=== PATIENT | male | born 2000 | race Two or more races ===

== ENCOUNTER 2024-10-09 11:26 | Emergency (ER) | payer OTHER, SELFPAY ==
[2024-10-09 12:10] VITALS: BP 124/82; PULSE 79; RESP 19; TEMP 37.5; O2SAT 98; BMI 20.1
--- NOTE | 2024-10-09 12:30 | EKG_ITS ---
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
--- NOTE | 2024-10-09 12:30 | XR_ITS ---
Examination: PA lateral chest 2 views Technique: AP upright lateral chest 2 views Date and time: October 09, 2024, 12:37 PM, comparison April 08, 2007. Indication: Dizziness this week. Findings: Significant hyperexpansion. Normal heart size. No pneumonia or pulmonary edema. Impression: COPD with significant hyperexpansion.
--- NOTE | 2024-10-09 12:31 | PD.EDRME ---
Rapid Medical Screening Exam RME Arrival date/time: 10/09/24 11:26 Chief Complaint: Headache Time Seen by Provider: 10/09/24 12:15 Vital signs: Vital Signs Temperature 99.5 F 10/09/24 12:10 Pulse Rate 79 10/09/24 12:10 Respiratory Rate 19 10/09/24 12:10 Blood Pressure 124/82 10/09/24 12:10 Pulse Oximetry (%) 98 10/09/24 12:10 Oxygen Delivery Method Room Air 10/09/24 12:10 Vital signs reviewed by provider: Yes RME Narrative: Patient is a 24-year-old male with no significant past medical history is in the Emergency Department feeling weak and lightheaded. Patient states that over the last couple days he has felt this way. Denies fevers chills nausea vomiting cough runny nose abdominal pain dysuria hematuria melena bloody stools. No drugs alcohol or smoking no recent travel no sick contacts. 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 Recently started antibiotics for a sinus infection. However his symptoms preceded that
[2024-10-09 13:18] LABS: Collection Type, Urine Clean Catch; Squamous Epithelial Cell,Urine 0 /hpf (0-5); WBC,Urine 0 /hpf (0-5)
[2024-10-09 13:43] LABS: Bilirubin,Urine Negative (Negative); Blood,Urine Negative (Negative); Clarity,Urine Clear (Clear/Hazy); Color,Urine Colorless (Lt Yel-Yel); Culture Indicated,Urine Not Indicated; Glucose, Urine Negative (Negative); Ketones,Urine Negative (Negative); Leukocyte Esterase,Urine Negative (Negative); Nitrite,Urine Negative (Negative); PH,Urine 7.0 (5.0-7.0); Protein,Urine Negative (Neg - Trace); RBC,Urine 2 /hpf (0-3); Specific Gravity,Urine 1.010 (1.001-1.035); Urobilinogen,Urine Negative mg/dL (0.0-1.0)
[2024-10-09 13:50] LABS: Basophils # (Auto) 0.1 Thou/mm3 (0.0-0.2); Basophils % (Auto) 1 % (0-2.5); Eosinophils # (Auto) 0.1 Thou/mm3 (0.0-0.5); Eosinophils % (Auto) 2 % (0-10); Hematocrit 45.7 % (41.0-53.0); Hemoglobin 16.0 g/dL (13.5-16.0); Immature Granulocytes Auto 0.01 Thou/mm3 (0.00-0.00); Lymphocytes # (Auto) 1.5 Thou/mm3 (1.0-4.8); Lymphocytes % (Auto) 26 % (10-50); Mean Corpuscular HGB Conc 35.0 g/dl (31.0-37.0); Mean Corpuscular Hemoglobin 30.2 pg (25.0-35.0); Mean Corpuscular Volume 86 fL (80-100); Monocytes # (Auto) 0.5 Thou/mm3 (0.0-0.8); Monocytes % (Auto) 8 % (0-12); Neutrophils # (Auto) 3.7 Thou/mm3 (1.8-7.7); Neutrophils % (Auto) 63 % (37-80); Nucleated Red Blood Cell # 0.00 Thou/mm3 (0.00-0.00); Nucleated Red Blood Cell % 0 /100 WBC (0); Platelet Count 178 Thou/mm3 (140-440); RDW Standard Deviation 37.4 fL (35.1-43.9); Red Blood Count 5.29 Miln/mm3 (4.50-5.90); White Blood Count 5.8 Thou/mm3 (3.8-10.6)
[2024-10-09 14:03] LABS: Amphetamine/Methamp Scrn,U Negative (Negative); Barbiturate Screen,Urine Negative (Negative); Benzodiazepines Screen,Urine Negative (Negative); Benzoylecgonine Screen, Ur Negative (Negative); Fentanyl Screen,Urine Negative (Negative); Opiate Screen,Urine Negative (Negative); THC Screen,Urine Negative (Negative)
[2024-10-09 15:10] LABS: Alanine Aminotransferase 11 U/L (10-49); Albumin, Serum 5.2 gm/dL (3.5-5.0); Albumin/Globulin Ratio 1.9 (1.2-2.2); Alkaline Phosphatase 73 U/L (46-116); Anion Gap 12 (7-16); Aspartate Amino Transferase 19 U/L (0-34); BUN/Creatinine Ratio 7 Ratio (12-20); Bilirubin,Total 0.9 mg/dL (0.3-1.2); Blood Urea Nitrogen 8 mg/dL (9-23); Calcium 10.2 mg/dL (8.3-10.6); Calcium (Corrected) 10.2 mg/dL (8.5-10.1); Carbon Dioxide 26.3 mMol/L (20.0-31.0); Chloride 105 mMol/L (98-107); Creatinine (Component) 1.1 mg/dL (0.6-1.3); Estimated Creatinine Clearance 93.3 mL/min (>60); Free T4 (Free Thyroxine) 1.38 ng/dL (0.89-1.76); Globulin 2.7 gm/dL (2.3-3.5); Glucose 102 mg/dL (74-106); Osmolality,Calculated 283 (275-295); Potassium 4.5 mMol/L (3.4-5.1); Sodium 143 mMol/L (136-145); Thyroid Stimulating Hormone 1.24 uIU/mL (0.55-4.78); Total Protein 7.9 gm/dL (5.7-8.2); Troponin I < 0.002 ng/mL (0.0-0.045); eGFR > 60 See Note
--- NOTE | 2024-10-09 15:31 | EDNOTE_ITS ---
ED Headache RME/HPI General Chief Complaint: Headache Stated Complaint: HEADACHE, SHAKINESS, FEELS FAINT X WEEK Time Seen by Provider: 10/09/24 12:15 Source: patient Arrival date/time: 10/09/24 11:26 Mode of arrival: ambulatory Limitations: no limitations RME / HPI RME / HPI Narrative: Patient is a 24-year-old male with no significant past medical history is in the Emergency Department feeling weak and lightheaded. Patient states that over the last couple days he has felt this way. Denies fevers chills nausea vomiting cough runny nose abdominal pain dysuria hematuria melena bloody stools. No drugs alcohol or smoking no recent travel no sick contacts. 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 Recently started antibiotics for a sinus infection. However his symptoms preceded that Related Data Home Medications ?Medication ?Instructions ?Recorded ?Confirmed albuterol sulfate 90 mcg/actuation 1 - 2 puff IH EVERY 3 HOUR ##1 04/13/07 aerosol inhaler (Ventolin HFA) montelukast 5 mg chewable tablet 5 mg ORAL DAILY ##0 0 04/13/07 (Singulair) prednisolone 15 mg/5 mL oral 15 mg ORAL DAILY ##0 03/21 06/24 solution Allergies Allergy/AdvReac Type Severity Reaction Status Date / Time No Known Allergies Allergy Verified 10/09/24 11:27 ED Exam General Limitations: Present no limitations General appearance: Present in no apparent distress Head Head exam: Present atraumatic and normocephalic Eye Eye exam: Present normal appearance, PERRL and EOMI ENT ENT exam: Present normal exam and normal oropharynx Neck Neck exam: Present normal inspection, full ROM and trachea midline; Absent tenderness or meningismus Chest Chest inspection: Present symmetric chest wall rise Respiratory Respiratory exam: Present normal lung sounds bilaterally; Absent respiratory distress Cardiovascular Cardiovascular exam: Present regular rate and normal rhythm Abdominal Exam Abdominal exam: Present soft; Absent distention or tenderness Extremities Exam Extremities exam: Present normal inspection and full ROM Neurological Exam Neurological exam: Present alert, oriented X3, CN II-XII intact and normal gait; Absent motor sensory deficit Psychiatric Psychiatric exam: Present normal affect Skin Skin exam: Present warm, dry and intact Course Quality Measures none Orders Category Date Time Status EKG (ED ONLY) *Do not use* NOW Care 10/09/24 12:30 Completed CXR2 [XR chest 2V] Stat Exams 10/09/24 12:30 Completed EKG (ED Only) Stat Exams 10/09/24 12:30 Draft CBC Stat Lab 10/09/24 13:42 Completed CMP [Comprehensive Metabolic Panel] Stat Lab 10/09/24 13:42 Completed Drug Screen,Urine Stat Lab 10/09/24 13:01 Completed Free T4 (Free Thyroxine) Stat Lab 10/09/24 13:42 Completed TSH [Thyroid Stimulating Hormone] Stat Lab 10/09/24 13:42 Completed Troponin I Stat Lab 10/09/24 13:42 Completed UA, C/S IF [Urinalysis, C/S if Indicated] Stat Lab 10/09/24 13:01 Completed Vital Signs Vital signs: Vital Signs Temperature 99.5 F 10/09/24 12:10 Pulse Rate 79 10/09/24 12:10 Respiratory Rate 19 10/09/24 12:10 Blood Pressure 124/82 10/09/24 12:10 Pulse Oximetry (%) 98 10/09/24 12:10 Oxygen Delivery Method Room Air 10/09/24 12:10 Headache MDM Narrative MDM Narrative:: Patient is a 24-year-old male is in the emerged from concerns for weakness, and presyncopal symptoms. Vital signs and exam as listed. Concern for urinary tract infection, ACS arrhythmia electrolyte abnormality viral syndrome among others. Ordered labs EKG and offer medication for symptom relief. Labs without acute hematologic abnormality, no leukocytosis, hemoglobin within normal limits, no acute electrolyte abnormality, no evidence of renal dysfunction, no transaminitis troponin not elevated, thyroid studies unremarkable, urinalysis without evidence of infection, drug screen is negative, EKG performed today at 12:50 PM notable for sinus rhythm, short [place], normal QT, nonspecific T wave changes, not a cardiac alert. Chest x-ray without evidence of hyperexpansion. On reevaluation patient hemodynamically stable not distressed will discharge to home with close return precautions follow-up with his primary care doctor. Patient data External records reviewed:: None Clinical information provided by:: patient Social determinants that could affect healthcare access:: none Patient has the following chronic illnesses:: None How is presenting disease/condition affected by chronic disease/condition?: no chronic disease Evaluation data The following diagnostics were reviewed and interpreted by me:: lab results, radiology exam(s) and EKG tracing(s) Lab and/or radiology exams considered but not ordered:: None Interpretation Summary: See MDM Medications / Prescriptions Medications or Prescriptions considered but not ordered:: None Medication administrations:: None Consultations Consultation(s) initiated? (list below): No Diagnosis Differential diagnosis headache: headache and other (Syncope, metabolic disturbance) Most likely diagnosis given after review of the tests above:: Presyncope Admission Indicated Admission indicated?: not indicated Admission Request Was there a request for admission?: No Disposition Plan Disposition Plan: Discharge Discharge Attestation Discharge Attestation: The patient and all family members were given an opportunity to ask questions and understood the discharge instructions. Discharge instructions specifically effects, indications for sooner follow up or return to the emergency department, and the expected course of current diagnosis. Patient condition: Stable Discharge Plan Plan Patient Disposition: HOME (Self Care) Prescriptions/Referrals Prescriptions/Med Rec: No Action albuterol sulfate [Ventolin HFA] 200 PUFF/INH HFA aerosol inhaler 1 - 2 puff IH EVERY 3 HOUR Qty: 1 Patient Comments: TAKE 2 PUFFS BY MOUTH NEEDED EVERY 3 HOURS FOR ASTHMA prednisolone 15 MG/5 ML syrup 15 mg ORAL DAILY Qty: 0 Patient Comments: TAKE 2 TEASPOONS BY MOUTH DAILY FOR 3 DAYS THEN ONE TEASPOON BY MOUTH DAILY FOR 4 DAYS. montelukast [Singulair] 5 MG tablet,chewable 5 mg ORAL DAILY Qty: 0 Patient Comments: CHEW ONE TABLET BY MOUTH DAILY Referrals: No Primary/Family,Physician [Primary Care Provider] - In 1 week Problem List Clinical Impression: Pre-syncope, Shortened [place] interval Patient/Caregiver Discharge Instructions Education Materials: Causes of Syncope Additional Instructions: Please follow-up with your primary care doctor within the next 1 to 2 days. You may benefit from a stress test and further evaluation with a senior asp net developer. If your symptoms recur please return to the emergency department immediately. Print Language: Palestinian Stand Alone Forms: [employer] Info., Patient Portal Info Letter
== END 2024-10-09 17:24 | disposition home or self-care (01) ==
PROVIDERS: Emergency Provider Emergency Medicine
DX: R55 Syncope and collapse (principal); R53.1 Weakness
CPT/HCPCS: 36415; 71046; 80053; 80307; 81001; 84439; 84443; 84484; 85025; 93005; 99283

== ENCOUNTER 2024-11-26 12:17 | Emergency (ER) | payer OTHER, BC, SELFPAY ==
--- NOTE | 2024-11-26 12:42 | EKG_ITS ---
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
--- NOTE | 2024-11-26 12:42 | XR_ITS ---
Examination: CT brain head without contrast. 2-D sagittal coronal reconstructions Date and time of exam: November 26, 2024, 1257 hours INDICATIONS: Intermittent headache today CTDI: vol (mGy): 49.9 DLP: (mGycm): 1053 Technique: Multiple CT axial sections of the brain have been obtained, 5 mm slice thickness. Contrast has not been administered. 2-D sagittal, coronal reconstructions have been obtained Low dose protocols were performed. One or more of the following dose reduction techniques were used; automated exposure control, adjustment of the mA and/or KV according to patient size, use of iterative reconstruction technique. Findings: No significant ventricular enlargement. Intra-axial or extra-axial hemorrhage density is not seen. No mass effect or midline shift Basal cisterns are not remarkable. Fourth ventricle is midline. Cranial vault intact. Chronic ethmoid and sphenoid sinusitis Impression: Negative for acute hemorrhage, mass effect or midline shift
--- NOTE | 2024-11-26 12:43 | EDNOTE_ITS ---
ED Headache RME/HPI General Chief Complaint: Chest Pain Stated Complaint: CHEST PAIN, HEAVINESS IN HEAD, DIZZY Time Seen by Provider: 11/26/24 12:19 Arrival date/time: 11/26/24 12:17 RME / HPI RME / HPI Narrative: 24-year-old male patient with no significant medical history except for asthma, came in for evaluation regarding headache. Patient has been having headache for the last few days associated with dizziness. Severity of symptoms moderate. Patient also complained of chest discomfort severity mild. Has been ongoing since early this morning. Patient denies any shortness of breath denies any cough denies any diaphoresis denies any trauma to the chest denies any fall. Denies any other complaints patient is ambulatory Speech no focal neurologic deficit. No medication was taken prior to ER visit. Related Data Home Medications ?Medication ?Instructions ?Recorded ?Confirmed albuterol sulfate 90 mcg/actuation 1 - 2 puff IH EVERY 3 HOUR ##1 04/13/07 aerosol inhaler (Ventolin HFA) montelukast 5 mg chewable tablet 5 mg ORAL DAILY ##0 0 04/13/07 (Singulair) prednisolone 15 mg/5 mL oral 15 mg ORAL DAILY ##0 03/21 06/24 solution Previous Rx's ?Medication ?Instructions ?Recorded amoxicillin 875 mg-potassium 1 tab PO BID #14 tabs 12/11 clavulanate 125 mg tablet fexofenadine 60 mg-pseudoephedrine 1 tab PO Q12H PRN a llergy symptoms 11/26/24 ER 120 mg tablet,ext.release,12 hr #14 tabs (Lata-D 12 Hour) ibuprofen 800 mg tablet 800 mg PO Q8H PRN pain #30 t abs 11/26/24 Allergies Allergy/AdvReac Type Severity Reaction Status Date / Time No Known Allergies Allergy Verified 11/26/24 12:20 Review of Systems Review of Systems Narrative Review of Systems: Review of system reviewed and within normal limits except mentioned in HPI ED Exam Narrative Physical exam: VITAL SIGNS: Reviewed. GENERAL APPEARANCE: Alert and interactive, follows commands, no acute distress, HEAD AND FACE: Non-traumatic. ENT: PERRL, pink conjunctivitis, eyelid no trauma, Mucous membrane moist. NECK: Supple, nontender, no nuchal rigidity. CHEST: No tenderness, no crepitus, no paradoxical movement, no retractions. LUNGS: Clear, well ventilated, symmetric, no rales, no wheezing, no ronchi, no stridor, good breath sounds bilaterally. HEART: Regular rate, regular rhythm, no murmur, no gallops. ABDOMEN: Soft, positive bowel sounds, nondistended, no guarding, nontender, no rebound, no masses, RECTAL: Deferred. GENITAL: Deferred. NEUROLOGICAL: Gross motor function intact sensory function intact, Appropriate for age. MUSCULOSKELETAL: low back nontender, full range of motion. EXTREMITIES: Nontender, full range of motion. SKIN: Color pink, dry, no rash, no lacerations, no abrasions, no contusions. LYMPHATICS: Deferred. Course Quality Measures none Orders Category Date Time Status EKG (ED ONLY) *Do not use* NOW Care 11/26/24 12:[address] head/brain wo con Stat Exams 11/26/24 12:42 Completed EKG (ED Only) Stat Exams 11/26/24 12:42 Draft Acetaminophen Tab [Tylenol ES Tab] Med 11/26/24 12:42 Discontinued 1,000 mg PO X1 ONE Meclizine HCl [Antivert] Med 11/26/24 12:42 Discontinued 50 mg PO X1 ONE Vital Signs Vital signs: Vital Signs Temperature 97.7 F 11/26/24 12:44 Pulse Rate 86 11/26/24 12:44 Respiratory Rate 18 11/26/24 12:44 Blood Pressure 145/99 H 11/26/24 12:44 Pulse Oximetry (%) 99 11/26/24 12:44 Oxygen Delivery Method Room Air 11/26/24 12:44 Headache MDM Narrative MDM Narrative:: 24-year-old male patient with no significant medical history except for asthma, came in for evaluation regarding headache. Patient has been having headache for the last few days associated with dizziness. Severity of symptoms moderate. Patient also complained of chest discomfort severity mild. Has been ongoing since early this morning. Patient denies any shortness of breath denies any cough denies any diaphoresis denies any trauma to the chest denies any fall. Denies any other complaints patient is ambulatory Speech no focal neurologic deficit. No medication was taken prior to ER visit. CT scan of the head showed No significant ventricular enlargement. Intra-axial or extra-axial hemorrhage density is not seen. No mass effect or midline shift Basal cisterns are not remarkable. Fourth ventricle is midline. Cranial vault intact. Chronic ethmoid and sphenoid sinusitis Impression: Negative for acute hemorrhage, mass effect or midline shift EKG showed sinus rhythm, ventricular rate of 80 bpm, no ST segment elevation or depression noted. Prior to discharge patient is not having any symptoms of chest discomfort. Patient is ambulatory. Patient was given a copy of his CT scan. Will prescribe him on Augmentin Lata-D and Motrin. Stable for discharge home Patient data External records reviewed:: None Clinical information provided by:: patient Social determinants that could affect healthcare access:: none Patient has the following chronic illnesses:: None How is presenting disease/condition affected by chronic disease/condition?: no chronic disease Evaluation data The following diagnostics were reviewed and interpreted by me:: radiology exam(s) and EKG tracing(s) Lab and/or radiology exams considered but not ordered:: None Interpretation Summary: See results MDM Medications / Prescriptions Medications or Prescriptions considered but not ordered:: None Medication administrations:: Medication Administration History Discontinued Medications Acetaminophen (Acetaminophen 500 Mg Tablet) 1,000 mg PO X1 ONE Stop: 11/26/24 12:43 Last Admin: 11/26/24 12:59 Dose: 1,000 mg Documented By: JOANIE Meclizine HCl (Meclizine Hcl 25 Mg Tablet) 50 mg PO X1 ONE Stop: 11/26/24 12:43 Last Admin: 11/26/24 13:00 Dose: 50 mg Documented By: JOANIE Tylenol, meclizine Consultations Consultation(s) initiated? (list below): No Diagnosis Differential diagnosis headache: migraine, headache and sinusitis Most likely diagnosis given after review of the tests above:: Sinusitis Admission Indicated Admission indicated?: not indicated Admission Request Was there a request for admission?: No Disposition Plan Disposition Plan: Discharge Discharge Attestation Discharge Attestation: The patient and all family members were given an opportunity to ask questions and understood the discharge instructions. Discharge instructions specifically effects, indications for sooner follow up or return to the emergency department, and the expected course of current diagnosis. Patient condition: Stable Discharge Plan Plan Patient Disposition: HOME (Self Care) Discharge Disposition comment: stable Prescriptions/Referrals Prescriptions/Med Rec: New amoxicillin-pot clavulanate 875-125 mg tablet 1 tab PO BID Qty: 14 0RF ibuprofen 800 mg tablet 800 mg PO Q8H PRN (Reason: pain) Qty: 30 0RF fexofenadine-pseudoephedrine [Lata-D 12 Hour] 60-120 mg tablet extended release 12 hr 1 tab PO Q12H PRN (Reason: allergy symptoms) Qty: 14 0RF No Action albuterol sulfate [Ventolin HFA] 200 PUFF/INH HFA aerosol inhaler 1 - 2 puff IH EVERY 3 HOUR Qty: 1 Patient Comments: TAKE 2 PUFFS BY MOUTH NEEDED EVERY 3 HOURS FOR ASTHMA prednisolone 15 MG/5 ML syrup 15 mg ORAL DAILY Qty: 0 Patient Comments: TAKE 2 TEASPOONS BY MOUTH DAILY FOR 3 DAYS THEN ONE TEASPOON BY MOUTH DAILY FOR 4 DAYS. montelukast [Singulair] 5 MG tablet,chewable 5 mg ORAL DAILY Qty: 0 Patient Comments: CHEW ONE TABLET BY MOUTH DAILY Referrals: Chriss (PCP),MD Ahsan [Primary Care Provider, Family Practice] - In 1 week Problem List Clinical Impression: Sinusitis Patient/Caregiver Discharge Instructions Discharge Activity: activity as tolerated Education Materials: Causes of Sinusitis Additional Instructions: Thank you for the opportunity for serving you today. You are stable for discharged . You are advised to: Follow-up with your PCP in 1 to 2 days Return to ED for worsening of symptoms Increase oral fluids You are prescribed Lata-D and Augmentin for your sinusitis. You can also take Motrin as needed for pain CT scan your head came back unremarkable except for sinusitis. Your EKG showed no acute ischemic changes normal EKG Print Language: Citizen Of [place] Stand Alone Forms: [employer] Info., Patient Portal Info Letter TROY/ELINA Supervising Physician TROY/ELINA Supervising Physician: MD Kan
[2024-11-26 12:44] VITALS: BP 145/99; PULSE 86; RESP 18; TEMP 36.5; O2SAT 99; BMI 19.9
[2024-11-26] MEDS: ACETAMINOPHEN 500 MG TABLET 1000 MG PO (12:59)
[2024-11-26] MEDS: MECLIZINE HCL 25 MG TABLET 50 MG PO (13:00)
== END 2024-11-26 15:56 | disposition home or self-care (01) ==
PROVIDERS: Emergency Provider Family Medicine; PCP Family Medicine
DX: J32.9 Chronic sinusitis, unspecified (principal); J45.909 Unspecified asthma, uncomplicated
CPT/HCPCS: 70450; 93005; 99283; A9270